=== PATIENT | male | born 1995 | race Caucasian/White ===

== ENCOUNTER 2018-03-24 02:54 | Emergency (ER) | payer OTHER ==
--- NOTE | 2018-03-24 03:07 | ER Report ---
History and Physical Time Seen By MD: 03:07 Hx. of Stated Complaint: PATIENT HAVING MID ABDOMINAL PAIN SINCE AROUND 2300, SLIGHT NAUSEA, PATIENT STATES HE FEELS LIKE HIS STOMACH WAS OVER STRETCHED. HPI/ROS CHIEF COMPLAINT: stomach pain HISTORY OF PRESENT ILLNESS: This is a 22 year old male. He has been having some intermittent stomach pain for the last 48 hours. Was in good health previously. Has had similar pain one other time in the last few months. He has bee drinking pretty heavily this weekend, but has never had problems in the past from this. No bad food exposures that he is aware of. No history of ulcers and no reflux symptoms. No fevers or chills. No sick contacts. No diarrhea or bowel problems. REVIEW OF SYSTEMS: Constitutional: No fever or chills. Eyes: No vision changes. ENT: No sore throat. No congestion. Cardiovascular: No chest pain. Respiratory: No shortness of breath. Gastrointestinal: As above. Genitourinary: No dysuria. Skin: No rashes. Neurological: No numbness. No weakness. Allergies: Coded Allergies: No Known Drug Allergies (Unverified , 03/24/18) Home Meds No Active Prescriptions or Reported Meds Reviewed Nurses Notes: Yes Constitutional Vital Sign - Last 24 Hours 03/24/18 03/24/18 03/24/18 03/24/18 03:00 03:04 03:09 03:24 Temp 97.5 Pulse 84 87 71 Resp 16 B/P (MAP) 138/106 140/88 (105) Pulse Ox 92 99 94 O2 Delivery Room Air 03/24/18 03/24/18 03/24/18 03/24/18 03:30 03:39 03:54 04:00 Pulse 54 59 B/P (MAP) 128/82 (97) 121/72 (88) Pulse Ox 94 93 03/24/18 03/24/18 04:30 04:39 Pulse 66 B/P (MAP) 126/94 (105) Pulse Ox 94 Physical Exam General Appearance: The patient is alert. No acute distress. Non-toxic in appearance. Eyes: Pupils are equal, round. No pallor, injection or icterus. ENT: Mucous membranes are moist. Normal oral mucosa. Posterior oropharynx is normal. Neck: Supple and non tender. Respiratory: Lungs are clear to auscultation. Cardiovascular: Regular rate and rhythm. No murmurs, gallops or rubs. Normal capillary refill. Gastrointestinal: Abdomen is soft, mild epigastric pain with palpation. Nondistended. No rebound or guarding. Normal active bowel sounds. No costovertebral angle tenderness with percussion. Neurological: Alert and oriented x3. Skin: Warm and dry. No rashes. Musculoskeletal: Extremities are nontender. No tenderness in palpation of the cervical, thoracic and lumbar spine. DIFFERENTIAL DIAGNOSIS: After history and physical exam, differential diagnosis was considered for epigastric pain including but not limited to biliary colic, cholecystitis, peptic ulcer disease, pancreatitis, and gastroenteritis. Medical Decision Making Data Points Result Diagram: 03/24/18 0312 03/24/18 0312 Laboratory Hematology Test 03/24/18 02:58 03/24/18 03:12 Urine Color Yellow Urine Clarity Clear Urine pH 6.0 pH (4.8-9.5) Urine Specific [place] 1.021 Urine Protein Negative mg/dL (NEGATIVE) Urine Glucose (UA) Negative mg/dL (NEGATIVE) Urine Ketones Negative mg/dL (NEGATIVE) Urine Blood Negative (NEGATIVE) Urine Nitrite Negative (NEGATIVE) Urine Bilirubin Negative (NEGATIVE) Urine Urobilinogen Negative mg/dL (0.2-1.9) Urine Leukocyte Esterase Negative (NEGATIVE) Urine RBC <1 /HPF (0-2/HPF) Urine WBC 2 /HPF (0-5/HPF) Urine Squamous Epithelial Cells None /LPF (</=FEW) Urine Bacteria Negative /HPF (NONE-FEW) Urine Mucus Few /HPF (NONE-FEW) Red Blood Count 5.60 M/uL (4.00-5.60) Mean Corpuscular Volume 91.9 fL (80.0-96.0) Mean Corpuscular Hemoglobin 32.0 pg (26.0-33.0) Mean Corpuscular Hemoglobin Concent 34.9 g/dL (32.0-36.0) Red Cell Distribution Width 12.7 % (11.5-14.5) Mean Platelet Volume 8.7 fL (7.2-11.1) Neutrophils (%) (Auto) 62.0 % (39.4-72.5) Lymphocytes (%) (Auto) 27.2 % (17.6-49.6) Monocytes (%) (Auto) 8.7 % (4.1-12.4) Eosinophils (%) (Auto) 1.5 % (0.4-6.7) Basophils (%) (Auto) 0.6 % (0.3-1.4) Nucleated RBC Relative Count (auto) 0.1 /100WBC Neutrophils # (Auto) 7.3 K/uL (2.0-7.4) Lymphocytes # (Auto) 3.2 K/uL (1.3-3.6) Monocytes # (Auto) 1.0 K/uL (0.3-1.0) Eosinophils # (Auto) 0.2 K/uL (0.0-0.5) Basophils # (Auto) 0.1 K/uL (0.0-0.1) Nucleated RBC Absolute Count (auto) 0.01 K/uL Sodium Level 141 mmol/L (137-145) Potassium Level 3.6 mmol/L (3.5-5.0) Chloride Level 102 mmol/L (98-107) Carbon Dioxide Level 25 mmol/L (22-30) Blood Urea Nitrogen 17 mg/dl (9-21) Creatinine 1.00 mg/dl (0.66-1.25) Glomerular Filtration Rate Calc > 60.0 Random Glucose 103 mg/dl (75-110) Calcium Level 9.5 mg/dl (8.4-10.2) Total Bilirubin 0.6 mg/dl (0.2-1.3) Aspartate Amino Transf (AST/SGOT) 28 U/L (0-35) Alanine Aminotransferase (ALT/SGPT) 41 U/L (0-56) Alkaline Phosphatase 84 U/L (0-126) C-Reactive Protein 0.8 mg/dl (<1.0) Total Protein 8.3 g/dl (6.3-8.2) Albumin 4.8 g/dl (3.5-5.0) Amylase Level 133 U/L (0-110) Lipase 62 U/L (23-300) Helicobacter pylori IgG Antibody Negative (NEGATIVE) Chemistry Test 03/24/18 02:58 03/24/18 03:12 Urine Color Yellow Urine Clarity Clear Urine pH 6.0 pH (4.8-9.5) Urine Specific [place] 1.021 Urine Protein Negative mg/dL (NEGATIVE) Urine Glucose (UA) Negative mg/dL (NEGATIVE) Urine Ketones Negative mg/dL (NEGATIVE) Urine Blood Negative (NEGATIVE) Urine Nitrite Negative (NEGATIVE) Urine Bilirubin Negative (NEGATIVE) Urine Urobilinogen Negative mg/dL (0.2-1.9) Urine Leukocyte Esterase Negative (NEGATIVE) Urine RBC <1 /HPF (0-2/HPF) Urine WBC 2 /HPF (0-5/HPF) Urine Squamous Epithelial Cells None /LPF (</=FEW) Urine Bacteria Negative /HPF (NONE-FEW) Urine Mucus Few /HPF (NONE-FEW) White Blood Count 11.9 k/uL (4.5-11.0) Red Blood Count 5.60 M/uL (4.00-5.60) Hemoglobin 18.0 g/dL (14.0-18.0) Hematocrit 51.5 % (42.0-52.0) Mean Corpuscular Volume 91.9 fL (80.0-96.0) Mean Corpuscular Hemoglobin 32.0 pg (26.0-33.0) Mean Corpuscular Hemoglobin Concent 34.9 g/dL (32.0-36.0) Red Cell Distribution Width 12.7 % (11.5-14.5) Platelet Count 269 K/uL (150-450) Mean Platelet Volume 8.7 fL (7.2-11.1) Neutrophils (%) (Auto) 62.0 % (39.4-72.5) Lymphocytes (%) (Auto) 27.2 % (17.6-49.6) Monocytes (%) (Auto) 8.7 % (4.1-12.4) Eosinophils (%) (Auto) 1.5 % (0.4-6.7) Basophils (%) (Auto) 0.6 % (0.3-1.4) Nucleated RBC Relative Count (auto) 0.1 /100WBC Neutrophils # (Auto) 7.3 K/uL (2.0-7.4) Lymphocytes # (Auto) 3.2 K/uL (1.3-3.6) Monocytes # (Auto) 1.0 K/uL (0.3-1.0) Eosinophils # (Auto) 0.2 K/uL (0.0-0.5) Basophils # (Auto) 0.1 K/uL (0.0-0.1) Nucleated RBC Absolute Count (auto) 0.01 K/uL Glomerular Filtration Rate Calc > 60.0 Calcium Level 9.5 mg/dl (8.4-10.2) Total Bilirubin 0.6 mg/dl (0.2-1.3) Aspartate Amino Transf (AST/SGOT) 28 U/L (0-35) Alanine Aminotransferase (ALT/SGPT) 41 U/L (0-56) Alkaline Phosphatase 84 U/L (0-126) C-Reactive Protein 0.8 mg/dl (<1.0) Total Protein 8.3 g/dl (6.3-8.2) Albumin 4.8 g/dl (3.5-5.0) Amylase Level 133 U/L (0-110) Lipase 62 U/L (23-300) Helicobacter pylori IgG Antibody Negative (NEGATIVE) Urinalysis Test 03/24/18 02:58 Urine Color Yellow Urine Clarity Clear Urine pH 6.0 pH (4.8-9.5) Urine Specific [place] 1.021 Urine Protein Negative mg/dL (NEGATIVE) Urine Glucose (UA) Negative mg/dL (NEGATIVE) Urine Ketones Negative mg/dL (NEGATIVE) Urine Blood Negative (NEGATIVE) Urine Nitrite Negative (NEGATIVE) Urine Bilirubin Negative (NEGATIVE) Urine Urobilinogen Negative mg/dL (0.2-1.9) Urine Leukocyte Esterase Negative (NEGATIVE) Urine RBC <1 /HPF (0-2/HPF) Urine WBC 2 /HPF (0-5/HPF) Urine Squamous Epithelial Cells None /LPF (</=FEW) Urine Bacteria Negative /HPF (NONE-FEW) Urine Mucus Few /HPF (NONE-FEW) ED Course/Re-evaluation Clinical Indication for ER IV: Hydration, IV Access ED Course Labs unremarkable. Patient did have improvement with Protonix, Zofran, and GI cocktail. Started on ranitidine. Most likely alcohol use gastritis, but cannot rule out viral syndrome or bad food exposure. Decision to Disposition Date: Mar 24, 2018 Decision to Disposition Time: 04:24 Depart Departure Latest Vital Signs Vital Signs Date Time Temp Pulse Resp B/P (MAP) Pulse Ox O2 Delivery O2 Flow Rate FiO2 03/24/18 04:39 66 94 03/24/18 04:30 126/94 (105) 03/24/18 03:00 97.5 16 Room Air Impression: Primary Impression: Gastritis Condition: Improved Disposition: HOME OR SELF-CARE Referrals: UZMA GEIGER MD New Scripts No Active Prescriptions or Reported Meds Patient Instructions: Gastritis (ED) Additional Instructions: Start taking Zantac (Ranitidine) 150 mg, twice a day. Rest and increase fluid intake. Inflammation in stomach could be due to virus, bad food exposure, or the heavy alcohol use this weekend. Follow-up with Dr. Geiger if not improving. Problem Qualifiers Primary Impression: Gastritis Gastritis type: unspecified gastritis Chronicity: acute Gastritis bleeding: presence of bleeding unspecified Qualified Codes: K29.00 - Acute gastritis without bleeding BRANDON MALHOTRA MD Mar 24, 2018 03:07
[2018-03-24] MEDS ORDERED: ATRO/SCOPOL/HYOSCY/PB 5 ML ELX PO ONE (03:15)
[2018-03-24] MEDS ORDERED: NS(*) 0.9% 1000 ML BAG 1,000 ML IV ONE (03:15)
[2018-03-24] MEDS ORDERED: MAG HYD/AL HYD/SIMETH 30ML UDC PO ONE (03:15)
[2018-03-24] MEDS ORDERED: PANTOPRAZOLE SOD 40 MG IV VIAL IVP ONE ×2 (03:15→04:25)
[2018-03-24] MEDS ORDERED: ONDANSETRON 4 MG/2 ML VIAL IVP ONE (03:15)
[2018-03-24] MEDS ORDERED: LIDOCAINE 2% VISC SLN 15ML UDC PO ONE (03:15)
[2018-03-24 03:31] LABS: PLATELET COUNT, AUTOMATED 269 K/uL (150-450)
[2018-03-24 04:30] VITALS: BP 126/94
== END 2018-03-24 04:47 | disposition home or self-care (01) ==
LOC: ER 03:10
DX: K29.00 Acute gastritis without bleeding (principal)
CPT/HCPCS: 81001; 82150; 83690; 85025; 86140; 86677; 96374; 96375; 96376; 99284; C9113; J2405; J7030; 82040; 82247; 82310; 82374; 82435; 82565; 82947; 84075; 84132; 84155; 84295; 84450; 84460; 84520